=== PATIENT | female | born 1990 | race Hispanic/Latino ===

== ENCOUNTER 2017-07-24 18:01 | Emergency (ER) | payer MEDICAID, OTHER | END 2017-07-24 18:29 | disposition home or self-care (01) | LOC: EDH 18:01 | DX: M25.511 Pain in right shoulder (principal) | CPT/HCPCS: 99281 ==

== ENCOUNTER 2018-09-10 12:51 | Emergency (ER) | payer SELFPAY ==
[2018-09-10] MEDS ORDERED: ONDANSETRON ODT 4 MG TAB ONE (13:20)
[2018-09-10] MEDS ORDERED: DICYCLOMINE HCL 20 MG TAB ONE (13:20)
[2018-09-10] MEDS ORDERED: SIMETHICONE 80 MG TAB.CHEW ONE (13:20)
== END 2018-09-10 14:04 | disposition home or self-care (01) ==
LOC: EDH 12:51
DX: R19.7 Diarrhea, unspecified (principal); R10.9 Unspecified abdominal pain; R11.0 Nausea

== ENCOUNTER 2019-02-28 21:52 | Emergency (ER) | payer SELFPAY | END 2019-02-28 21:58 | disposition left against medical advice (07) | LOC: EDH 21:52 | DX: J02.9 Acute pharyngitis, unspecified (principal); Z53.21 Procedure and treatment not carried out due to patient leaving prior to being seen by health care provider ==

== ENCOUNTER → 2023-02-26 | Outpatient (CLI) | payer MEDICAID | END | disposition home or self-care (01) | LOC: RAH 09:14 | PROVIDERS: ATTEND Obstetrics & Gynecology | DX: N13.30 Unspecified hydronephrosis (principal); R30.0 Dysuria; M54.9 Dorsalgia, unspecified | CPT/HCPCS: 76770 ==